=== PATIENT | female | born 1985 | race Caucasian/White ===

== ENCOUNTER 2016-06-08 17:59 | Emergency (ER) | payer OTHER ==
[2016-06-08] MEDS ORDERED: Sodium Chloride 0.9% 1,000 ML IV ONE (18:34)
--- NOTE | 2016-06-08 18:34 | C.PDOC ---
History Of Present Illness 30 year old patient presents to the ED complaining of abdominal pain, back pain , and vomiting since this afternoon. Patient states this is a new onset. She also complains of dysuria for the past 3 days. She is taking Azo with no relief. Patient has a surgical history of a . Patient denies fever, diarrhea, numbness, weakness, or incontinence. Time Seen by Provider: 06/08/16 18:22 Chief Complaint (Nursing): Abdominal Pain History Per: Patient History/Exam Limitations: no limitations Onset/Duration Of Symptoms: Days (3), Worse Since (this afternoon) Current Symptoms Are (Timing): Still Present Context: Other Severity: Moderate Pain Scale Rating Of: 4 Location Of Pain/Discomfort: Epigastric Radiation Of Pain To:: None Quality Of Discomfort: "Pain" Associated Symptoms: Vomiting Exacerbating Factors: None Alleviating Factors: None Last Bowel Movement: Today Recent travel outside of the [place]: No Abnormal Vaginal Bleeding: No Past Medical History Reviewed: Historical Data, Nursing Documentation, Vital Signs Vital Signs: Last Vital Signs Temp 98.6 F 06/08/16 19:54 Pulse 93 H 06/08/16 19:54 Resp 18 06/08/16 19:54 BP 91/55 L 06/08/16 19:54 Pulse Ox 99 06/08/16 20:37 Family History: States: Unknown Family Hx - Social History Hx Tobacco Use: No Hx Alcohol Use: No Hx Substance Use: No - Immunization History Hx Tetanus Toxoid Vaccination: No Hx Influenza Vaccination: No Hx Pneumococcal Vaccination: No Review Of Systems Except As Marked, All Systems Reviewed And Found Negative. Constitutional: Negative for: Fever Gastrointestinal: Positive for: Vomiting, Abdominal Pain (epigastric). Negative for: Diarrhea Genitourinary: Positive for: Dysuria. Negative for: Incontinence Musculoskeletal: Positive for: Back Pain (lower) Neurological: Negative for: Weakness, Numbness Physical Exam - Physical Exam Appears: Non-toxic, No Acute Distress Skin: Warm, Dry Head: Atraumatic, Normacephalic Eye(s): bilateral: Normal Inspection, PERRL, EOMI Oral Mucosa: Moist Throat: Normal, No Erythema, No Exudate Neck: Normal ROM, Supple Chest: Symmetrical Cardiovascular: Rhythm Regular Respiratory: Normal Breath Sounds, No Rales, No Rhonchi, No Wheezing Gastrointestinal/Abdominal: Soft, Tenderness (epigastric), No Guarding, No Rebound Back: CVA Tenderness (right), No Decreased ROM Extremity: Normal ROM Neurological/Psych: Oriented x3, Normal Speech, Normal Cognition Gait: Steady ED Course And Treatment - Laboratory Results Result Diagrams: 06/08/16 18:51 06/08/16 18:51 O2 Sat by Pulse Oximetry: 99 (RA) Pulse Ox Interpretation: Normal Medical Decision Making Medical Decision Making: Plan: * Labs * IV fluids, Toradol, Zofran 2024 the pt reports feeling much better. she is resting comfortably and appears well. I disc her test results, dx, plan for rx, follow up and rtr. she v/u and agrees w plan. Disposition - Disposition Referrals: Shanon Muhammad [Staff Provider] - Disposition: HOME/ ROUTINE Disposition Time: 20:36 Condition: IMPROVED Additional Instructions: Please follow up with your doctor this week. Return to the ER for any worsening symptoms, if you are not feeling better in 2 days, or for any other concerns. Prescriptions: Cefuroxime Axetil [Cefuroxime] 500 mg PO BID #20 tablet Naproxen 500 mg PO Q12H PRN #6 tab PRN Reason: Pain, Moderate (4-7) Ondansetron ODT [Zofran ODT] 4 mg PO Q4H PRN #10 odt PRN Reason: Nausea/Vomiting Instructions: Urinary Tract Infection in Women (ED), Acute Pyelonephritis (ED) Forms: Gen Discharge Inst Gibraltarian Print Language: TOGOLESE - Clinical Impression Clinical Impression: Pyelonephritis - Scribe Statement The provider has reviewed the documentation as recorded by the Isaac June Provider Attestation: All medical record entries made by the Daniloibgraeme were at my direction and personally dictated by me. I have reviewed the chart and agree that the record accurately reflects my personal performance of the history, physical exam, medical decision making, and the department course for this patient. I have also personally directed, reviewed, and agree with the discharge instructions and disposition.
[2016-06-08] MEDS ORDERED: Sodium Chloride 0.9% 1,000 ML ONE (18:40)
[2016-06-08 19:04] LABS: BASO % 0.2 % (0.0-2.0); EOS # 0.3 K/uL (0.0-0.7); EOS % 2.4 % (0.0-4.0); LYMPH # 0.5 K/uL (1.0-4.3); LYMPH % 4.4 % (20.0-40.0); MEAN CELL VOLUME 87.6 fL (81.0-99.0); MEAN CORPUSCULAR HEMOGLOBIN 29.5 pg (27.0-31.0); MEAN CORPUSCULAR HGB CONC 33.7 g/dL (33.0-37.0); MEAN PLATELET VOLUME 8.9 fL (7.2-11.7); MONO # 0.5 K/uL (0.0-0.8); PLATELET COUNT 248 K/uL (130-400); RED CELL DISTRIBUTION WIDTH 13.5 % (11.5-14.5); WHITE BLOOD COUNT 12.2 K/uL (4.8-10.8)
[2016-06-08 19:06] LABS: CHLORIDE 97 mmol/L (98-107); SODIUM 137 mmol/L (132-148)
[2016-06-08 19:07] LABS: POTASSIUM 3.4 mmol/L (3.6-5.2)
[2016-06-08 19:09] LABS: ALB/GLOB RATIO 1.4 (1.0-2.1); ALKALINE PHOSPHATASE 114 U/L (38-126); ALT/SGPT 48 U/L (9-52); AST/SGOT 55 U/L (14-36); BILIRUBIN,TOTAL 0.6 mg/dL (0.2-1.3); BLOOD UREA NITROGEN 14 mg/dL (7-17); CARBON DIOXIDE 23 mmol/L (22-30); GFR AFRICAN-AMERICAN > 60; GLUCOSE,RANDOM 92 mg/dL (65-105)
[2016-06-08 19:10] LABS: CALCIUM 8.4 mg/dl (8.6-10.4)
[2016-06-08 19:13] LABS: RBC URINE 65 /hpf (0-3); URINE BACTERIA MOD (<OCC); URINE BILIRUBIN NEGATIVE (NEGATIVE); URINE BLOOD NEGATIVE (NEGATIVE); URINE COLOR Amber (YELLOW); URINE GLUCOSE (UA) NORMAL (Normal); URINE KETONE TRACE mg/dL (NEGATIVE); URINE LEUKOCYTE ESTERASE NEG Leu/uL (Negative); URINE PROTEIN 1+ mg/dL (NEGATIVE); WBC URINE 37 /hpf (0-5)
[2016-06-08] MEDS ORDERED: cefTRIAXone IV 1 gm in Dextros 50 ML IVPB ONE (19:20)
[2016-06-08 19:56] LABS: EOSINOPHIL 4 % (0-4); NEUTROPHIL 87 % (50-75); TOTAL CELLS COUNTED 100
[2016-06-08 21:01] VITALS: BP 102/58; PULSE 88; RESP 20; TEMP 99; O2SAT 96
== END 2016-06-08 21:01 | disposition home or self-care (01) ==
LOC: C.ER 17:59
DX: N12 Tubulo-interstitial nephritis, not specified as acute or chronic (principal)
CPT/HCPCS: 80053; 81001; 83690; 84703; 85025; 87086; 96361; 96365; 96375; 99285; J0696; J1885; J2405; J7040

== ENCOUNTER 2016-06-13 17:25 | Emergency (ER) | payer OTHER ==
[2016-06-13 17:41] VITALS: BP 125/85; PULSE 77; RESP 16; TEMP 99.2; O2SAT 100
--- NOTE | 2016-06-13 18:45 | C.PDOC ---
History Of Present Illness Patient presents to ED for evaluation, states she had a verbal argument with and has been depressed about it. She denies history of depression, and has no suicidal/homicidal ideations. She admits to cutting herself two days ago , but states she did it for attention from her , not to hurt herself. She has no physical complaints. Time Seen by Provider: 06/13/16 17:49 Chief Complaint (Nursing): Psychiatric Evaluation History Per: Patient History/Exam Limitations: no limitations Onset/Duration Of Symptoms: Days (2) Severity: Mild Associated Symptoms: Depression. denies: Suicidal Thoughts Past Medical History Reviewed: Historical Data, Nursing Documentation, Vital Signs Vital Signs: Last Vital Signs Temp 99.2 F 06/13/16 17:41 Pulse 77 06/13/16 17:41 Resp 16 06/13/16 17:41 BP 125/85 06/13/16 17:41 Pulse Ox 100 06/13/16 19:01 Family History: States: No Known Family Hx - Social History Hx Tobacco Use: No Hx Alcohol Use: No Hx Substance Use: No - Immunization History Hx Tetanus Toxoid Vaccination: No Hx Influenza Vaccination: No Hx Pneumococcal Vaccination: No Review Of Systems Except As Marked, All Systems Reviewed And Found Negative. Constitutional: Negative for: Fever, Chills Cardiovascular: Negative for: Chest Pain, Palpitations Respiratory: Negative for: Cough, Shortness of Breath Gastrointestinal: Negative for: Nausea, Vomiting, Abdominal Pain, Diarrhea Physical Exam - Physical Exam Appears: Well, Non-toxic, No Acute Distress Head: Normacephalic Eye(s): bilateral: Normal Inspection Oral Mucosa: Moist Cardiovascular: Rhythm Regular Respiratory: Normal Breath Sounds, No Rales, No Rhonchi, No Wheezing Extremity: Bilateral: Atraumatic, Normal Color And Temperature, Normal ROM Neurological/Psych: Oriented x3, Normal Speech, Normal Cognition Gait: Steady ED Course And Treatment O2 Sat by Pulse Oximetry: 100 (RA) Pulse Ox Interpretation: Normal Progress Note: Patient seen by crisis counselor, who discussed patient with [employer] [facility] [employer] consultant psychiatrist. Patient set up for outpatient appointment at psychiatrist clinic. She was instructed to return to ED if she has any concerning symptoms. Disposition Counseled Patient/Family Regarding: Diagnosis, Need For Followup - Disposition Referrals: [facility] [Outside] Disposition: HOME/ ROUTINE Disposition Time: 19:00 Condition: STABLE Additional Instructions: SEGUIMIENTO EN LA CLNICA PSIQUITRICA SEGN LO PROGRAMADO DEVUELVA A LA ELIZABETH DE EMERGENCIA SI LOS SNTOMAS EMPEORARAN Forms: General Discharge Instructions Print Language: DOMINICAN - POA Present On Arrival: None - Clinical Impression Clinical Impression: Depressed
== END 2016-06-13 20:06 | disposition home or self-care (01) ==
LOC: C.ER 17:25
DX: F32.9 Major depressive disorder, single episode, unspecified (principal)

== ENCOUNTER 2016-11-20 19:17 | Emergency (ER) | payer MEDICAID, OTHER ==
[2016-11-20 19:34] VITALS: BP 111/77; PULSE 81; RESP 16; TEMP 99; O2SAT 100
[2016-11-20] MEDS ORDERED: Tmp-Smz 800 mg-160 mg DS Tab PO STA (20:13)
--- NOTE | 2016-11-20 20:23 | C.PDOC ---
History Of Present Illness 31 year old female presents to the ED with complaints of a bump to the right elbow for three days. Patient states she tried to squeeze the bump and some fluid was released. It has since become more swollen and red prompting visit. Patient denies fever, shortness of breath, or other complaints at this time. Time Seen by Provider: 11/20/16 19:42 Chief Complaint (Nursing): Upper Extremity Problem/Injury History Per: Patient History/Exam Limitations: no limitations Onset/Duration Of Symptoms: Days (3 days ) Current Symptoms Are (Timing): Still Present Quality: "Pain" (and draining fluid ) Exacerbating Factor(s): Nothing Recent travel outside of the [place]: No Past Medical History Reviewed: Historical Data, Nursing Documentation, Vital Signs Vital Signs: Last Vital Signs Temp 99 F 11/20/16 19:31 Pulse 81 11/20/16 19:31 Resp 16 11/20/16 19:31 BP 111/77 11/20/16 19:31 Pulse Ox 100 11/20/16 20:28 - Medical History PMH: No Chronic Diseases Family History: States: No Known Family Hx - Social History Hx Tobacco Use: No Hx Alcohol Use: No Hx Substance Use: No - Immunization History Hx Tetanus Toxoid Vaccination: No Hx Influenza Vaccination: No Hx Pneumococcal Vaccination: No Review Of Systems Except As Marked, All Systems Reviewed And Found Negative. Constitutional: Negative for: Fever, Chills Cardiovascular: Negative for: Chest Pain Respiratory: Negative for: Shortness of Breath Gastrointestinal: Negative for: Nausea, Vomiting Skin: Positive for: Other (bump to right elbow with drainage ) Physical Exam - Physical Exam Appears: Non-toxic, No Acute Distress Skin: Warm, Dry, Other (3 cm area of mild erythema, tenderness, and swelling to posterior right elbow with bite in the center) Head: Atraumatic Eye(s): bilateral: Normal Inspection Oral Mucosa: Moist Extremity: Normal ROM (full ROM of right elbow ), Capillary Refill (good capillary refill, less than two seconds ) Pulses: Left Radial: Normal, Right Radial: Normal Neurological/Psych: Oriented x3, Normal Speech, Normal Motor, Normal Sensation Gait: Steady ED Course And Treatment O2 Sat by Pulse Oximetry: 100 (room air) Pulse Ox Interpretation: Normal Medical Decision Making Medical Decision Making: The wound is indurated and not ready for I&D. Traced wound edge with marker to determine if wound worsens. Disposition - Disposition Referrals: Shanon Muhammad [Staff Provider] - Disposition: HOME/ ROUTINE Disposition Time: 20:38 Condition: GOOD Additional Instructions: RETURN IF WORSENED, SUCH WORSENED PAIN, SWELLING OR REDNESS, OR FEVER. Prescriptions: Cephalexin [cephalexin] 500 mg PO TID #21 cap Sulfamethoxazole/Trimethoprim [Bactrim DS 800 mg-160 mg] 1 tab PO BID #14 tab Instructions: Cellulitis (ED) Forms: [employer] (Icelandic) - Clinical Impression Clinical Impression: Cellulitis, Insect bite - PA / FURNITURE FABRICATOR / Resident Statement MD/DO has reviewed & agrees with the documentation as recorded. - Scribe Statement The provider has reviewed the documentation as recorded by the Scribgraeme Villanueva All medical record entries made by the Daniloibgraeme were at my direction and personally dictated by me. I have reviewed the chart and agree that the record accurately reflects my personal performance of the history, physical exam, medical decision making, and the department course for this patient. I have also personally directed, reviewed, and agree with the discharge instructions and disposition.
--- NOTE | 2016-11-20 20:37 | C.PDOC ---
Time Seen by Provider: 11/20/16 19:42 Chief Complaint (Nursing): Upper Extremity Problem/Injury Past Medical History Vital Signs: Last Vital Signs Temp 99 F 11/20/16 19:31 Pulse 81 11/20/16 19:31 Resp 16 11/20/16 19:31 BP 111/77 11/20/16 19:31 Pulse Ox 100 11/20/16 19:31 - Medical History PMH: Denies: Diabetes, Hepatitis, HIV, HTN, Seizures, Sexually Transmitted Disease - Social History Hx Tobacco Use: No Hx Alcohol Use: No Hx Substance Use: No - Immunization History Hx Tetanus Toxoid Vaccination: No Hx Influenza Vaccination: No Hx Pneumococcal Vaccination: No ED Course And Treatment O2 Sat by Pulse Oximetry: 100 Disposition - Disposition Referrals: Shanon Muhammad [Staff Provider] - Disposition: HOME/ ROUTINE Disposition Time: 20:38 Condition: GOOD Additional Instructions: RETURN IF WORSENED, SUCH WORSENED PAIN, SWELLING OR REDNESS, OR FEVER. Prescriptions: Cephalexin [cephalexin] 500 mg PO TID #21 cap Sulfamethoxazole/Trimethoprim [Bactrim DS 800 mg-160 mg] 1 tab PO BID #14 tab Instructions: Cellulitis (ED) Forms: [employer] (Samoan) - Clinical Impression Clinical Impression: Cellulitis
[2016-11-20] MEDS ORDERED: Tmp-Smz 800 mg-160 mg DS Tab ONE (20:45)
== END 2016-11-20 20:48 | disposition home or self-care (01) ==
LOC: C.ER 19:17
DX: L03.113 Cellulitis of right upper limb (principal); S50.361A Insect bite (nonvenomous) of right elbow, initial encounter; W57.XXXA Bitten or stung by nonvenomous insect and other nonvenomous arthropods, initial encounter